=== PATIENT | male | born 1965 | race Caucasian/White ===

== ENCOUNTER 2017-08-25 13:05 | Outpatient (CLI) | payer OTHER | END 2017-08-25 13:06 | disposition home or self-care (01) | LOC: SC 13:05 | PROVIDERS: ATTEND Nurse Practitioner Family | DX: G47.33 Obstructive sleep apnea (adult) (pediatric) (principal) | CPT/HCPCS: 99212; 99214 ==

== ENCOUNTER 2017-10-06 13:16 | Outpatient (CLI) | payer OTHER | END 2017-10-06 13:17 | disposition home or self-care (01) | LOC: SC 13:16 | PROVIDERS: ATTEND Nurse Practitioner Family | DX: G47.33 Obstructive sleep apnea (adult) (pediatric) (principal) | CPT/HCPCS: 99212; 99213 ==

== ENCOUNTER 2017-12-08 13:13 | Outpatient (CLI) | payer OTHER | END 2017-12-08 13:14 | disposition home or self-care (01) | LOC: SC 13:13 | PROVIDERS: ATTEND Nurse Practitioner Family | DX: G47.33 Obstructive sleep apnea (adult) (pediatric) (principal) | CPT/HCPCS: 99212; 99213 ==

== ENCOUNTER 2018-05-27 07:50 | Day surgery (SDC) | payer OTHER ==
[~2018-05-27 07:50] MED LIST: BUPIVACAINE 0.25% PF 30 ML VIAL ONE
[2018-05-27] MEDS ORDERED: LACTATED RINGERS 1,000 ML IV ONE ×2 (07:56→10:18)
--- NOTE | 2018-05-27 08:13 | ANESTHESIA ---
Pre-Anesthesia VS, & Labs - Diagnosis right partial distal biceps rupture - Procedure right distal biceps tendon repair Vital Signs: Temp Pulse Resp BP Pulse Ox 36.2 C L 72 16 121/91 H 100 05/27/18 08:04 05/27/18 08:04 05/27/18 08:04 05/27/18 08:04 05/27/18 08:04 Height 5 ft 10 in Weight (kg) 110.2 kg - NPO >8 hours Home Medications and Allergies Home Medications: Ambulatory Orders Apixaban [Eliquis] 5 mg PO DAILY 05/20/18 Atorvastatin Calcium [Lipitor] 40 mg PO DAILY 05/20/18 DULoxetine [Cymbalta] 40 mg PO DAILY 05/20/18 Dofetilide [Tikosyn] 500 mcg PO BID 05/20/18 Magnesium Oxide 400 mg PO DAILY 05/20/18 Metoprolol Tartrate [Lopressor] 50 mg PO BID 05/20/18 Multivitamin [Multivitamins] 1 each PO DAILY 05/20/18 Acyclovir 400 mg PO Q8HR PRN 04/05/15 Apixaban [Eliquis] 5 mg PO DAILY 05/20/18 Atorvastatin Calcium [Lipitor] 40 mg PO DAILY 05/20/18 DULoxetine [Cymbalta] 40 mg PO DAILY 05/20/18 Dofetilide [Tikosyn] 500 mcg PO BID 05/20/18 Magnesium Oxide 400 mg PO DAILY 05/20/18 Metoprolol Tartrate [Lopressor] 50 mg PO BID 05/20/18 Multivitamin [Multivitamins] 1 each PO DAILY 05/20/18 Allergies/Adverse Reactions: Allergies Allergy/AdvReac Type Severity Reaction Status Date / Time No Known Drug Allergies Allergy Verified 05/20/18 13:52 Anes History & Medical History - Anesthetic History Anesthesia Complications: reports: No previous complications Family history of Anesthesia Complications: Denies Family history of Malignant Hyperthermia: Denies - Medical History Cardiovascular: reports: Hypertension, High cholesterol, Atrial fibrillation Pulmonary: reports: Sleep apnea, CPAP use Gastrointestinal: reports: None Urinary: reports: None Musculoskeletal: reports: Chronic back pain, Other Endocrine/Autoimmune: reports: None Skin: reports: None Smoking Status: Never smoker - Surgical History Cardiothoracic: Other Orthopedic: Other Exam General: Alert Dental: WNL Mouth Openin Fingerbreadth Neck Mobility: Normal Mallampati classification: I Thyromental Distance: greater than 6 cm Respiratory: Lungs clear, Normal breath sounds, No respiratory distress, No accessory muscle use Cardiovascular: Regular rate, Normal S1, Normal S2, No murmurs Mental/Cognitive Status: Alert/Oriented X3, Normal for patient Cognitive Status: Within normal limits Plan Anesthesia Type: General Consent for Procedure(s) Verified and Reviewed: Yes Code Status: Attempt Resuscitation ASA classification: 2-Mild systemic disease Is this case an emergency?: No
[2018-05-27] MEDS ORDERED: ONDANSETRON 4 MG/2 ML VIAL IVP ONE (09:29)
[2018-05-27] MEDS ORDERED: ROCURONIUM 50 MG/5 ML VIAL IVP ONE (09:29)
[2018-05-27] MEDS ORDERED: ceFAZolin 1 GM VIAL IV ONE (09:29)
[2018-05-27] MEDS ORDERED: KETOROLAC 30 MG/ML VIAL IVP ONE (09:29)
[2018-05-27] MEDS ORDERED: DEXAMETHASONE 4 MG/ML VIAL IVP ONE (09:29)
[2018-05-27] MEDS ORDERED: fentaNYL 250 MCG/5 ML VIAL IVP ONE (09:29)
[2018-05-27] MEDS ORDERED: NEOSTIGMINE 1 MG/1 ML 10 ML MDV IVP ONE (09:29)
[2018-05-27] MEDS ORDERED: GLUCAGON 1 MG/ML VIAL IM ONE (09:29)
[2018-05-27] MEDS ORDERED: LIDOCAINE-MPF 2% 5 ML VIAL IM ONE (09:29)
[2018-05-27] MEDS ORDERED: ePHEDrine 50 MG/ML AMP IVP ONE (09:29)
[2018-05-27] MEDS ORDERED: PROPOFOL 200 MG/20 ML VIAL IVP ONE (09:29)
[2018-05-27] MEDS ORDERED: MIDAZOLAM 2 MG/2 ML VIAL IVP ONE (09:29)
[2018-05-27] MEDS ORDERED: BUPIVACAINE 0.25% PF 30 ML VIAL SUBQ ONE ×2 (09:51)
[2018-05-27] MEDS: HYDROmorphone 1 MG/ML CARPUJECT ONE ×2 (11:55→12:02)
[2018-05-27] MEDS ORDERED: ACETAMINOPHEN 1,000 MG/100 ML 100 ML IV ONE (12:10)
[2018-05-27] MEDS ORDERED: oxyCODONE 5 MG TABLET PO PRN (12:23)
[2018-05-27] MEDS ORDERED: HYDROmorphone 0.5 MG/0.5 ML SYRINGE IVP PRN (12:23)
--- NOTE | 2018-05-27 12:28 | OPERATIVE REPORT ---
Operative Report - General Procedure Date: 05/27/18 Planned Procedure: Right distal biceps tendon repair Pre-Op Diagnosis: Right partial distal biceps rupture Procedure Performed: Right distal biceps tendon repair Post Op Diagnosis: Right partial distal biceps rupture - Procedure Note Primary Surgeon: Dr Anshu Lester Secondary Surgeon: Dr Jose Huerta Anesthesia Technique: General LMA Estimated Blood Loss (mL): 25 Complications: None - Other Other Information/Narrative: TOURNIQUET TIME: 97min IMPLANTS: Arthrex 8mm PEEK tenodesis screw. Arthrex distal biceps button DISPOSITION: To recovery stable. INDICATIONS: This is a 52yo RHD M with approx.1 year of right elbow pain, worse with flexion and supination of the wrist. An MRI of the right elbow demonstrated a partial rupture of the distal biceps tendon from its insertion. He failed appropriate non-operative managment including immobilization and physical therapy and had persistent 6-7/10 daily pain and an inability to flex or supinate without significant pain. Based on his symptoms, open take down and repair of the distal biceps tendon was recommended. He understood the risks and benefits, specifically pain, bleeding, infection, nerve and blood vessel damage, stiffness, loss of motion, need for further surgery. He understood the risks and benefits and consented to the above procedure. DESCRIPTION OF OPERATION: The patient was positively identified in the preoperative holding area. The correct operative extremity, the right elbow, was identified and initialed. The consent and H&P were verified. IV antibiotics consisting of 2gm IV cefazolin were administered. The patient was brought to the operating room, placed supine position with the right arm extended on a hand table. After adequate general anesthesia was obtained, the right arm was prepped and draped to the axilla. Following draping, a sterile tourniquet was placed high on the right brachium. We then paused for a time out, confirming patient identity, procedure, laterality, equipment and antibiotics. Satisfied that this was correct, we proceeded. The proximal 8cm of the volar Benito approach were marked out on the volar forearm, centered proximal-distal 3-finger breadths below the elbow flexion crease and along the ulnar border of the brachioradialis. The arm was exsanguinated with an esmarch and the tourniquet was inflated to 250mmHg. An incision was made shaply though the skin and the dissection was continued through the subcutaneous fat using Metzenbaum scissors. We took care to look for the LABCN, however we did not encounter the nerve. The antebrachial fascia was divided in line with the incision, and a leash of several crossing vessels were isolated and ligated with 3-0 silk ties and then divided. We deepened the interval ulnar to the brachioradialis until the distal biceps tendon was identified. Staying radial to the tendon, we freed it up from the surrounding tissue and then circumferentially dissected it free of any adhesions to mobilize it. Once mobilized the tendon end was whipstitched with a number 2 fiberloop and the distal 1.5 cm of the tendon which was degenerative was sharply excised. The tendon was sized and found to fit through 7mm but not 6mm Next we prepared the radial tuberosity with a ayala elevator and placed the guide pin bicortically through the tuberosity under direct visualization. Position was confirmed with fluoroscopy. The proximal cortex was drilled to a depth of approc 10mm with a 7.5mm acorn reamer. The wound was then copiously irrigated to remove bone debris. The fiberloop sutures were then passed through the button and the button was passed bicortically. The arm was flexed to 60 deg and the sutures were tensioned to advance tendon into the prepared socket with good fit. A free needle was used to pass one limb of the suture through the tendon and a knot was tied. One limb of the suture was passed through the center of the biotenodesis screw and the screw was advanced into the socket radial to the tendon, flush with the anterior cortex with good fit. The arm was slowly extended and could get to 30 deg before the tendon became taut. Final radiographs were obtained, demonstrating good placement of the hardware. The wound was irrigated again, and tourniquet was released. Pressure was held for 5 minutes and then the wound inspected for abnormal bleeding. The wound was found to be dry. The wound was then closed with 2-0 vicryl interrupted subcutaeous and running 3-0 monocryl subcuticular stitches. Mastisol and steristrips were applied and 10ml of 0.25% marcaine was administered in the larry-incisional tissues. Xeroform, 4x4 gauze and sterile webril were applied, followed by a long arm posterior slab splint with medial/lateral outriggers. Anesthesia was reversed, the patient awakened, the LMA removed and patient transferred to the hospital bed. The patient transferred to recovery room in stable condition without incident. There were no complications, the patient tolerated the procedure well. Postoperatively, he will remain in the splint for 2 weeks until follow-up, after which we will start passive flexion and active extension in a hinged brace for weeks 2-6 and active flexion starting at 6 weeks. No strengthening until 12 weeks post-op.
[2018-05-27] MEDS ORDERED: oxyCODONE 5 MG TABLET ONE (13:01)
[2018-05-27 13:02] VITALS: BP 140/85
== END 2018-05-27 07:51 | disposition home or self-care (01) ==
LOC: SDS 07:50
PROVIDERS: ATTEND Orthopaedic Surgery
PROC: 0LM30ZZ Reattachment of Right Upper Arm Tendon, Open Approach (ICD-10-PCS; principal; 2018-05-27 09:00)
DX: M66.321 Spontaneous rupture of flexor tendons, right upper arm (principal); I48.1 Persistent atrial fibrillation; G47.30 Sleep apnea, unspecified; F32.9 Major depressive disorder, single episode, unspecified; K21.9 Gastro-esophageal reflux disease without esophagitis; E66.9 Obesity, unspecified; E78.00 Pure hypercholesterolemia, unspecified; G89.29 Other chronic pain; M54.9 Dorsalgia, unspecified; Z79.891 Long term (current) use of opiate analgesic; Z87.891 Personal history of nicotine dependence; Z86.19 Personal history of other infectious and parasitic diseases
CPT/HCPCS: 24340; A9270; C1713; J0131; J1170; J3010; J7120

== ENCOUNTER 2019-01-06 10:10 | Outpatient (CLI) | payer OTHER | END 2019-01-06 10:11 | disposition home or self-care (01) | LOC: SC 10:10 | PROVIDERS: ATTEND Nurse Practitioner Family | DX: G47.33 Obstructive sleep apnea (adult) (pediatric) (principal) | CPT/HCPCS: 99212; 99214 ==

== ENCOUNTER 2020-02-15 14:58 | Outpatient (CLI) | payer OTHER ==
[2020-02-15 15:48] VITALS: BP 100/70
--- NOTE | 2020-02-15 15:48 | SLEEP CARE CONSULTATION ---
Information from patient questionnaire entered by Adriana Patino. I have reviewed and concur with the information entered by Adriana Patino. This document represents the service I personally performed and the decisions made by me, Aura Santos, RN, MSN, MANAGER [employer]ATE[employer]IC. History of Present Illness Service Date and Time: 02/15/2020 1458 Previous diagnosis: Mild, Obstructive Sleep Apnea-Hypopnea Syndrome AHI: 5.2 Reason for follow up: annual Equipment type: CPAP Equipment obtained from: Other ([place] now covering equipment, needs DWO and transfer form completed.) Mask style: Full face Mask brand: Resmed (Air Touch - medium) Backup mask available: Yes (old mask ) Last cushion change: 3 weeks ago Prior sleep studies: Yes Year and Where: [facility] 2015 Type of Sleep Study: Polysomnography CPAP Compliance Data - Data Reviewed with Patient Average duration of nightly device use: 6h 37m Compliance rate %: 89.4 Current pressure setting (cmH2O): 10 Humidity settin Heated hose settin Average residual AHI: 2.7 Average large leak: 8m 5s Subjective Patient concerns: reports: dry mouth, nose, throat (1-2 times a month - mild dry mouth). denies: aerophagia, mask discomfort, air blowing in eyes, mask leak noise, condensation in mask/hose, nasal congestion, epistaxis, other Observed to snore while using device: No Current pressure setting perceived as: comfortable On therapy, patient: reports: sleeping better, awakening more refreshed, being more awake and alert during the day, more rested overall. denies: drowsiness while driving Initial [place] Sleepiness Scale score: 9 Current [place] Sleepiness Scale score: 11 Allergies and Home Medications Known drug allergies: No Home medication list reviewed: No (no changes) Review of Systems Review of systems same as previous: Yes Physical Exam Blood Pressure: 100/70 Cuff size: long Heart Rate: 68 O2 Saturation: 98 Height: 5 ft 10 in Weight: 260 lb 9.6 oz Weight change since last visit: 20 pounds Body Mass Index: 37.3 BMI Classification: Obese Impression and Plan 1. Obstructive Sleep Apnea-Hypopnea Syndrome, mild with supine AHI moderate, with good treatment compliance and good apnea control. On CPAP therapy, the patient has better sleep quality and is more rested overall. [facility] and [facility]O [facility] and form completed that he brought to office. If oral dryness increases, he is to increase humidity. Patient has lost weight. Currently patients BMI is 37 obesity class . Obesity increases the risk of apnea, CPAP pressure requirements and overall health risks especially cardiovascular and diabetes. Thus patient is advised to continue to lose weight. The patient would like to reduce to 20 -40 more pounds bringing their BMI down to about 31. Patient encouraged to discuss their weight loss goals with their PCP and consider a referral to a electric motor control assembler. The patient's CPAP pressure was changed to 8-10 cmH2O to accommodate future weight loss. Symptoms to report for additional pressure adjustment discussed. Patient's apnea severity and rationale for treatment to reduce apnea, improve sleep quality and reduce cardiovascular and cerebrovascular events was reviewed. I also reviewed the benefit of consistent device use of CPAP for hypertension, . * * Change auto CPAP pressure to 8-10 cmH2O * [facility] * [facility] * Notify me if snoring with mask or feeling that the pressure is too much or too little * Attempt to lose weight * Call this office if any problems using CPAP * Return for follow up in 1 year , or sooner if concerns arise Visit Type: In Office Time Spent with Patient (minutes): 25 Provider Statement: I spent 100% of the Face to Face Visit with the patient with greater than 50% spent counseling the patient and coordination of care.
== END 2020-02-15 14:59 | disposition home or self-care (01) ==
LOC: SC 14:58
PROVIDERS: ATTEND Nurse Practitioner Family
DX: G47.33 Obstructive sleep apnea (adult) (pediatric) (principal); E66.9 Obesity, unspecified; Z68.37 Body mass index [BMI] 37.0-37.9, adult
CPT/HCPCS: 99212; 99214

== ENCOUNTER 2021-03-05 13:02 | Outpatient (CLI) | payer OTHER ==
--- NOTE | 2021-03-05 13:32 | SLEEP CARE CONSULTATION ---
Information from patient questionnaire entered by Tanya Barrios. I have reviewed and concur with the information entered by Tanya Barrios. This document represents the service I personally performed and the decisions made by , Corinna Lane ARNP. History of Present Illness Service Date and Time: 03/05/2021 1302 Previous diagnosis: Mild, Obstructive Sleep Apnea-Hypopnea Syndrome AHI: 5.2 Reason for follow up: annual (Last seen 02/2020) Equipment type: CPAP Equipment obtained from: Other ([place] now covering equipment, needs DWO and transfer form completed.) Mask style: Full face Backup mask available: Yes (old mask) Last cushion change: 2 weeks ago Prior [facility]: Yes [facility] Type of Sleep Study: Polysomnography HPI additional information: KAYLEIGH FIGUEROA was diagnosed to have mild, AHI 5.2, obstructive sleep apnea- hypopnea syndrome and returned today for CPAP therapy annual follow-up. CPAP Compliance Data - Data Reviewed with Patient Average duration of nightly device use: 5 h 45 min Compliance rate %: 81.7 Current pressure setting (cmH2O): 10 Humidity settin Heated hose settin Average residual AHI: 2.9 Average large leak: 13 min 22 sec Subjective Missed days of use due to: reports: illness, travel Patient concerns: denies: aerophagia, mask discomfort, air blowing in eyes, mask leak noise, condensation in mask/hose, nasal congestion, dry mouth, nose, throat, epistaxis, other Observed to snore while using device: No Current pressure setting perceived as: comfortable On therapy, patient: reports: sleeping better, awakening more refreshed, being more awake and alert during the day, more rested overall. denies: drowsiness while driving Initial [place] Sleepiness Scale score: 9 (in 2016) Current [place] Sleepiness Scale score: 4 Allergies and Home Medications Home medication list reviewed: Yes (no changes) Review of Systems Review of systems same as previous: Yes (no changes) Physical Exam Heart Rate: 67 O2 Saturation: 98 Height: 5 ft 10 in Weight: 256 lb Body Mass Index: 36.7 BMI Classification: Obese Impression and Plan 1. Obstructive Sleep Apnea-Hypopnea Syndrome, mild, with good treatment compliance and good apnea control. On CPAP therapy, the patient has better sleep quality and is more rested overall. Discussed the [employer] recall wit h patient. Patient was encouraged to register their device online with [employer] with the recall. Patient denies any black particles, unusual odors coming from device or any physical symptoms such as upper airway irritation. Patient informed that they may use an inline CPAP filter that they can obtain online to reduce chance of any particles being inhaled or ingested. We discussed thoroughly the health risks of not using the CPAP versus continuing use with the filter in place. If patient is not able to sleep due to waking up choking, gasping for air or other respiratory distress that they may decide to continue using it until it is either replaced or repaired. Since the patients current machine is at least 5 years old the patient may opt to update their device with a device that is not on the recall. Patient would like to replace device that is on recall. The patients CPAP is over 5 years old and of reasonable use. Thus, the CPAP will be updated. A DWO prescription will be made. Compliance guidelines for new device and follow up discussed. Patient voiced understanding and agreement with plan. Patient's apnea severity and rationale for treatment to reduce apnea, improve sleep quality and reduce cardiovascular and cerebrovascular events was reviewed. I also reviewed the benefit of consistent device use of CPAP for hypertension and advantages of losing weight for his overall health. Patient encouraged to lose weight to improve his overall health. * Continue auto CPAP pressure at 10 cmH2O * Update device * Notify me if snoring with mask or feeling that the pressure is too much or too little * Attempt to lose weight * Call this office if any problems using CPAP * Return for follow up one month after obtaining new device, or sooner if concerns arise Counseling Topics: Spare mask, Weight loss health impact Visit Type: In Office Time Spent with Patient (minutes): 21 Provider Statement: I spent 100% of the Face to Face Visit with the patient with greater than 50% spent counseling the patient and coordination of care.
== END 2021-03-05 13:03 | disposition home or self-care (01) ==
LOC: SC 13:02
PROVIDERS: ATTEND Nurse Practitioner Family
DX: G47.33 Obstructive sleep apnea (adult) (pediatric) (principal); E66.9 Obesity, unspecified; Z68.36 Body mass index [BMI] 36.0-36.9, adult
CPT/HCPCS: 99212; 99213